=== PATIENT | female | born 1935 | race Hispanic/Latino ===

== ENCOUNTER 2017-11-22 11:00 | Day surgery (SDC) | payer MEDICARE ==
[~2017-11-22 11:00] MED LIST: AK-Dilate ONE; IOPIDINE ONE; IOPIDINE OU ONE; MYDRIACYL ONE; MYDRIACYL OU ONE; NEOFRIN OU ONE
[2017-11-22] MEDS ORDERED: IOPIDINE OU ONE (11:22)
[2017-11-22] MEDS ORDERED: NEOFRIN OU ONE (11:22)
[2017-11-22] MEDS ORDERED: MYDRIACYL OU ONE (11:22)
[2017-11-22 13:26] VITALS: BP 168/89
== END 2017-11-22 11:01 | disposition home or self-care (01) ==
LOC: OR 11:00
PROVIDERS: ATTEND Specialist
DX: H26.492 Other secondary cataract, left eye (principal); E78.00 Pure hypercholesterolemia, unspecified; I10 Essential (primary) hypertension; M13.862 Other specified arthritis, left knee; M13.861 Other specified arthritis, right knee; Z88.5 Allergy status to narcotic agent; Z98.42 Cataract extraction status, left eye; Z98.41 Cataract extraction status, right eye; Z90.49 Acquired absence of other specified parts of digestive tract; Z90.13 Acquired absence of bilateral breasts and nipples; Z90.710 Acquired absence of both cervix and uterus; Z85.3 Personal history of malignant neoplasm of breast; Z98.890 Other specified postprocedural states

== ENCOUNTER 2017-12-06 10:41 | Day surgery (SDC) | payer MEDICARE ==
[2017-12-06] MEDS ORDERED: NEOFRIN ONE (11:16)
[2017-12-06] MEDS ORDERED: IOPIDINE ONE (11:16)
[2017-12-06] MEDS ORDERED: MYDRIACYL ONE (11:16)
[2017-12-06 11:33] VITALS: BP 157/89
[2017-12-06] MEDS ORDERED: NEOFRIN OD ONE (11:33)
[2017-12-06] MEDS ORDERED: MYDRIACYL OD ONE (11:33)
[2017-12-06] MEDS ORDERED: IOPIDINE OD ONE (11:33)
== END 2017-12-06 12:50 | disposition home or self-care (01) ==
LOC: OR 10:41
PROVIDERS: ATTEND Specialist
DX: H26.491 Other secondary cataract, right eye (principal); E78.00 Pure hypercholesterolemia, unspecified; I10 Essential (primary) hypertension; M19.90 Unspecified osteoarthritis, unspecified site; Z79.899 Other long term (current) drug therapy; Z88.5 Allergy status to narcotic agent; Z98.890 Other specified postprocedural states; Z90.49 Acquired absence of other specified parts of digestive tract; Z90.13 Acquired absence of bilateral breasts and nipples; Z90.710 Acquired absence of both cervix and uterus; Z85.3 Personal history of malignant neoplasm of breast; Z98.42 Cataract extraction status, left eye; Z98.41 Cataract extraction status, right eye